=== PATIENT | male | born 1995 | race Caucasian/White ===

== ENCOUNTER 2025-04-06 12:46 | Emergency (ER) | payer SELFPAY ==
[~2025-04-06] VITALS: Ht 177.8 cm; Wt 78.0 kg
[2025-04-06 12:55] VITALS: O2SAT 98
[2025-04-06] MEDS: SODIUM CHLORIDE 0.9% 1,000 ML IV ONE (13:57)
[2025-04-06] MEDS: CEFTRIAXONE 1GM/50ML 50 ML IV ONE (13:57)
[2025-04-06 13:59] LABS: BASOPHILS % 0.4 % (0.0-2.0); EOSINOPHILS % 0.8 % (0.0-5.0); HEMATOCRIT. 36.2 % (42.0-52.0); HEMOGLOBIN. 12.1 g/dL (14.0-18.0); LYMPHOCYTES % 13.8 % (20.0-50.0); MEAN PLATELET VOLUME 7.4 fl (7.4-10.4); MONOCYTES % 8.7 % (2.0-8.0); NEUTROPHILS % 76.3 % (40.0-76.0); PLATELET 348 x1000/uL (130-400); RED BLOOD CELL COUNT 4.17 mill/uL (4.7-6.1); RED CELL DISTRIBUTION WIDTH 14.1 % (11.6-14.6)
[2025-04-06 14:07] LABS: CREATININE 0.6 mg/dL (0.6-1.3)
[2025-04-06 14:08] LABS: ETHANOL BLOOD < 10 mg/dL (<10); UREA NITROGEN BLOOD 13 mg/dL (9-23)
[2025-04-06] MEDS ORDERED: DOXY100T2 MT (15:27)
[2025-04-06 15:41] VITALS: BP 117/70; PULSE 95; RESP 18; TEMP 36.7; O2SAT 98
== END 2025-04-06 15:42 | disposition home or self-care (01) ==
LOC: ER 12:46
DX: L03.90 Cellulitis, unspecified (principal); F15.90 Other stimulant use, unspecified, uncomplicated
CPT/HCPCS: 80048; 80320; 85025; 36415; 96365; 99284; J0696; J7030; G0480